=== PATIENT | male | born 2005 | race Caucasian/White ===

== ENCOUNTER → 2023-09-17 | Emergency (ER) | payer MEDICAID ==
[~2023-09-17] VITALS: Ht 172.7 cm; Wt 57.8 kg
[2023-09-17 13:21] VITALS: BP 119/74; PULSE 81; RESP 16; TEMP 100; O2SAT 100
[2023-09-17 14:01] LABS: BASOPHILS % (AUTO) 0.5 % (0-1); EOSINOPHILS % (AUTO) 0.4 % (0-6); HEMOGLOBIN 14.7 g/dl (14.0-17.9); LYMPHOCYTES # (AUTO) 1.4 X10'3 (1.1-4.8); LYMPHOCYTES % (AUTO) 18.1 % (21-51); MEAN CORPUSCULAR HEMOGLOBIN 29.5 PG (27.0-31.0); MEAN CORPUSCULAR HGB CONC 34.1 g/dL (33.0-36.5); MEAN CORPUSCULAR VOLUME 86.5 FL (78-98); MEAN PLATELET VOLUME 8.2 FL (7.4-10.4); MONOCYTES # (AUTO) 0.6 X10'3 (0-0.9); MONOCYTES % (AUTO) 8.2 % (2-12); NEUTROPHILS # (AUTO) 5.7 X10'3 (1.8-7.7); NEUTROPHILS % (AUTO) 72.8 % (42-75); PLATELET COUNT 343 X10'3 (140-440); RED BLOOD COUNT 4.97 X10'6 (4.70-6.10); RED CELL DISTRIBUTION WIDTH 12.5 % (11.5-14.5); WHITE BLOOD COUNT 7.9 X10'3 (4.5-11.0)
[2023-09-17 14:22] LABS: ALBUMIN 4.9 G/DL (3.4-5.0); ANION GAP 7 (8-16); BLOOD UREA NITROGEN 14 MG/DL (7-18); BUN/CREATININE RATIO 13.9 (10.0-20.0); CALCIUM 9.8 MG/DL (8.5-10.1); CHLORIDE 102 MMOL/L (99-107); CREATININE 1.01 MG/DL (0.60-1.10); ETHANOL < 10 MG/DL (<10); GLUCOSE 90 MG/DL (70-104); POTASSIUM 4.3 MMOL/L (3.5-5.1); SODIUM 138 MMOL/L (135-145); THYROID STIMULATING HORMONE 1.05 ulU/ml (0.34-4.50); eCRCL 96 ML/MIN; eGFR > 90 ML/MIN
== END | disposition left against medical advice (07) ==
LOC: ER 13:14
DX: F41.9 Anxiety disorder, unspecified (principal); R45.851 Suicidal ideations; R45.1 Restlessness and agitation; Z20.822 Contact with and (suspected) exposure to COVID-19; F17.210 Nicotine dependence, cigarettes, uncomplicated
CPT/HCPCS: 36415; 80048; 80320; 84443; 85025; 87811; 99283

== ENCOUNTER 2023-11-30 19:53 | Emergency (ER) | payer MEDICAID ==
[~2023-11-30] VITALS: Ht 172.7 cm; Wt 69.0 kg
[2023-11-30 20:38] VITALS: TEMP 98.9
[2023-11-30 21:14] LABS: BILIRUBIN,URINE NEGATIVE (Neg); CLARITY,URINE CLEAR (Clear); COLOR,URINE YELLOW (Yellow); GLUCOSE, URINE NEGATIVE (Neg); KETONES,URINE NEGATIVE (Neg); LEUKOCYTE ESTERASE ,URINE NEGATIVE (Neg); NITRITES, URINE NEGATIVE (Neg); OCCULT BLOOD,URINE NEGATIVE (Neg); PROTEIN,URINE NEGATIVE (Neg); UROBILINOGEN,URINE 0.2 E.U/dL (0.2-1.0)
[2023-11-30 21:17] LABS: UA COLLECTION TYPE NON-SPECIFIED
[2023-11-30 21:29] LABS: BASOPHILS % (AUTO) 0.4 % (0-1); EOSINOPHILS # (AUTO) 0.1 X10'3 (0-0.9); EOSINOPHILS % (AUTO) 0.5 % (0-6); HEMATOCRIT 41.2 % (42.0-52.0); HEMOGLOBIN 14.2 g/dl (14.0-17.9); LYMPHOCYTES # (AUTO) 1.9 X10'3 (1.1-4.8); LYMPHOCYTES % (AUTO) 16.1 % (21-51); MEAN CORPUSCULAR HEMOGLOBIN 29.5 PG (27.0-31.0); MEAN CORPUSCULAR HGB CONC 34.4 g/dL (33.0-36.5); MEAN CORPUSCULAR VOLUME 85.9 FL (78-98); MEAN PLATELET VOLUME 8.6 FL (7.4-10.4); MONOCYTES % (AUTO) 8.6 % (2-12); NEUTROPHILS # (AUTO) 8.8 X10'3 (1.8-7.7); NEUTROPHILS % (AUTO) 74.4 % (42-75); PLATELET COUNT 318 X10'3 (140-440); WHITE BLOOD COUNT 11.8 X10'3 (4.5-11.0)
[2023-11-30 21:34] LABS: ALANINE AMINOTRANSFERASE 29 U/L (12-78); ALBUMIN 4.8 G/DL (3.4-5.0); ALBUMIN/GLOBULIN RATIO 1.5 (1.1-1.5); ALKALINE PHOSPHATASE 50 IU/L (20-180); ANION GAP 5 (8-16); ASPARTATE AMINO TRANSFERASE 14 U/L (10-37); BILIRUBIN,TOTAL 0.8 MG/DL (0.1-1.0); BLOOD UREA NITROGEN 18 MG/DL (7-18); BUN/CREATININE RATIO 18.4 (10.0-20.0); CALCIUM 9.6 MG/DL (8.5-10.1); CHLORIDE 100 MMOL/L (99-107); CREATININE 0.98 MG/DL (0.60-1.10); GLUCOSE 89 MG/DL (70-104); LIPASE 16 U/L (16-77); POTASSIUM 4.3 MMOL/L (3.5-5.1); SODIUM 136 MMOL/L (135-145); TOTAL CARBON DIOXIDE 30.8 MMOL/L (24-32); eCRCL 117 ML/MIN; eGFR > 90 ML/MIN
[2023-11-30] MEDS: normal saline 1000ml 1,000 ML IV ONE ×2 (22:15→22:39)
[2023-11-30] MEDS: ondansetron/PF 4mg/2ml inj IV ONE (22:38)
[2023-11-30 23:47] VITALS: BP 105/61; PULSE 68; RESP 17; O2SAT 98
== END 2023-11-30 23:55 | disposition home or self-care (01) ==
LOC: ER 19:53
DX: T67.5XXA Heat exhaustion, unspecified, initial encounter (principal); R11.10 Vomiting, unspecified; E86.0 Dehydration; X58.XXXA Exposure to other specified factors, initial encounter; Y93.89 Activity, other specified; Y92.89 Other specified places as the place of occurrence of the external cause; Y99.8 Other external cause status
CPT/HCPCS: 36415; 80053; 81003; 83690; 85025; 96361; 96374; 99283; J2405; J7030

== ENCOUNTER 2024-03-08 19:34 | Emergency (ER) | payer MEDICAID ==
[~2024-03-08] VITALS: Ht 172.7 cm; Wt 70.5 kg
[2024-03-08] MEDS: loperamide 2mg capsule PO ONE (20:59)
[2024-03-08] MEDS: dicyclomine 10 MG capsule PO ONE (20:59)
[2024-03-08] MEDS: ondansetron 4mg rapidly disintigrating tab PO ONE (21:00)
[2024-03-08 21:03] LABS: BASOPHILS # (AUTO) 0.1 X10'3 (0-0.2); BASOPHILS % (AUTO) 0.6 % (0-1); EOSINOPHILS # (AUTO) 0.1 X10'3 (0-0.9); EOSINOPHILS % (AUTO) 1.3 % (0-6); HEMATOCRIT 43.4 % (42.0-52.0); LYMPHOCYTES # (AUTO) 2.3 X10'3 (1.1-4.8); LYMPHOCYTES % (AUTO) 22.8 % (21-51); MEAN CORPUSCULAR HEMOGLOBIN 29.8 PG (27.0-31.0); MEAN CORPUSCULAR HGB CONC 34.6 g/dL (33.0-36.5); MEAN PLATELET VOLUME 8.4 FL (7.4-10.4); MONOCYTES # (AUTO) 1.2 X10'3 (0-0.9); MONOCYTES % (AUTO) 11.7 % (2-12); NEUTROPHILS # (AUTO) 6.5 X10'3 (1.8-7.7); NEUTROPHILS % (AUTO) 63.6 % (42-75); PLATELET COUNT 350 X10'3 (140-440); RED BLOOD COUNT 5.05 X10'6 (4.70-6.10); RED CELL DISTRIBUTION WIDTH 13.3 % (11.5-14.5); WHITE BLOOD COUNT 10.2 X10'3 (4.5-11.0)
[2024-03-08 21:07] LABS: BILIRUBIN,URINE NEGATIVE (Neg); CLARITY,URINE CLEAR (Clear); COLOR,URINE YELLOW (Yellow); GLUCOSE, URINE NEGATIVE (Neg); KETONES,URINE NEGATIVE (Neg); LEUKOCYTE ESTERASE ,URINE NEGATIVE (Neg); NITRITES, URINE NEGATIVE (Neg); OCCULT BLOOD,URINE NEGATIVE (Neg); PROTEIN,URINE NEGATIVE (Neg); UROBILINOGEN,URINE 0.2 E.U/dL (0.2-1.0)
[2024-03-08 21:22] LABS: UA COLLECTION TYPE CLN CATCH MIDSTREAM
[2024-03-08 21:22] LABS: ALANINE AMINOTRANSFERASE 30 U/L (12-78); ALBUMIN 4.7 G/DL (3.4-5.0); ALBUMIN/GLOBULIN RATIO 1.4 (1.1-1.5); ALKALINE PHOSPHATASE 68 IU/L (20-180); ANION GAP 9 (8-16); ASPARTATE AMINO TRANSFERASE 13 U/L (10-37); BILIRUBIN,TOTAL 1.1 MG/DL (0.1-1.0); BLOOD UREA NITROGEN 21 MG/DL (7-18); BUN/CREATININE RATIO 20.2 (10.0-20.0); CHLORIDE 103 MMOL/L (99-107); CREATININE 1.04 MG/DL (0.60-1.10); GLUCOSE 90 MG/DL (70-104); LIPASE 25 U/L (16-77); POTASSIUM 4.5 MMOL/L (3.5-5.1); SODIUM 142 MMOL/L (135-145); TOTAL CARBON DIOXIDE 29.8 MMOL/L (24-32); TOTAL PROTEIN 8.1 G/DL (6.4-8.2); eCRCL 110 ML/MIN; eGFR > 90 ML/MIN
[2024-03-08] MEDS ORDERED: ONDA-243 PO (21:24)
[2024-03-08 21:48] VITALS: BP 121/71; PULSE 68; RESP 16; TEMP 98.4; O2SAT 98
== END 2024-03-08 21:50 | disposition home or self-care (01) ==
LOC: ER 19:35
DX: R19.7 Diarrhea, unspecified (principal); R10.13 Epigastric pain; F17.290 Nicotine dependence, other tobacco product, uncomplicated; Z79.899 Other long term (current) drug therapy
CPT/HCPCS: 36415; 80053; 81003; 83690; 85025; 99284

== ENCOUNTER 2024-03-28 17:59 | Emergency (ER) | payer MEDICAID ==
[~2024-03-28] VITALS: Ht 170.2 cm; Wt 60.4 kg
[~2024-03-28 17:59] MED LIST: ONDA-243 PO
[2024-03-28 19:07] VITALS: BP 116/69; PULSE 71; RESP 18; TEMP 98.5; O2SAT 99
[2024-03-28] MEDS ORDERED: AMOX500C2 PO (19:16)
== END 2024-03-28 19:31 | disposition home or self-care (01) ==
LOC: ER 18:00
DX: K12.0 Recurrent oral aphthae (principal); K04.7 Periapical abscess without sinus
CPT/HCPCS: 99283

== ENCOUNTER 2024-04-02 19:05 | Emergency (ER) | payer MEDICAID ==
[~2024-04-02] VITALS: Ht 172.7 cm; Wt 55.7 kg
[~2024-04-02 19:05] MED LIST changes: +AMOX500C2 PO
[2024-04-02 20:15] VITALS: BP 144/93; PULSE 102; TEMP 99.2; O2SAT 98
[2024-04-02] MEDS ORDERED: IBUP-1984 PO (21:21)
[2024-04-02] MEDS ORDERED: LORA10TA65 PO (21:21)
[2024-04-02 21:26] VITALS: RESP 18
[2024-04-02] MEDS: ketorolac trometh 15mg/ml vial 15 MG/ML ML IM ONE (21:26)
[2024-04-02 22:27] LABS: STREP A SCREEN NEGATIVE (Neg)
== END 2024-04-02 21:39 | disposition home or self-care (01) ==
LOC: ER 19:05
DX: B34.9 Viral infection, unspecified (principal)
CPT/HCPCS: 87081; 87502; 87503; 87880; 96372; 99283; J1885

== ENCOUNTER 2024-04-13 23:01 | Emergency (ER) | payer MEDICAID ==
[~2024-04-13] VITALS: Ht 172.7 cm; Wt 59.5 kg
[~2024-04-13 23:01] MED LIST changes: -AMOX500C2 PO; +IBUP-1984 PO; +LORA10TA65 PO
[2024-04-14 00:06] LABS: BILIRUBIN,URINE NEGATIVE (Neg); CLARITY,URINE CLEAR (Clear); COLOR,URINE YELLOW (Yellow); GLUCOSE, URINE NEGATIVE (Neg); KETONES,URINE NEGATIVE (Neg); LEUKOCYTE ESTERASE ,URINE NEGATIVE (Neg); NITRITES, URINE NEGATIVE (Neg); OCCULT BLOOD,URINE NEGATIVE (Neg); PROTEIN,URINE NEGATIVE (Neg); UROBILINOGEN,URINE 0.2 E.U/dL (0.2-1.0)
[2024-04-14 00:10] LABS: UA COLLECTION TYPE CLN CATCH MIDSTREAM
[2024-04-14] MEDS ORDERED: DOXY-441 PO (00:25)
[2024-04-14] MEDS: DOXYCYCLINE 100MG CAPSULE PO STA (00:36)
[2024-04-14] MEDS: CefTRIAXone 500MG IM Kit w/LIDOcaine IM ONE (00:37)
[2024-04-14 01:33] VITALS: BP 116/54; PULSE 75; RESP 16; TEMP 98.6; O2SAT 99
[2024-04-16 05:42] LABS: CHLAMYDIA TRACHOMATIS, NAA Negative (Negative)
== END 2024-04-14 01:34 | disposition home or self-care (01) ==
LOC: ER 23:02
DX: N34.2 Other urethritis (principal); Z79.1 Long term (current) use of non-steroidal anti-inflammatories (NSAID); Z79.2 Long term (current) use of antibiotics
CPT/HCPCS: 36415; 81003; 87491; 87591; 99283; J0696; 96372